=== PATIENT | male | born 1980 | race Caucasian/White ===

== ENCOUNTER → 2020-08-14 09:11 | Outpatient (CLI) | payer OTHER, SELFPAY ==
--- NOTE | ~2020-08-14 | US_ITS ---
US right upper quadrant DATE: 08/14/2020 09:28 INDICATION: Lack of bile in stool. Abdominal bloating. TECHNIQUE: Real time imaging of liver, pancreas, gallbladder COMPARISON: None FINDINGS: There are multiple filling defects of the gallbladder with acoustical shadowing, consistent with chol elithiasis. There is mild thickening of the gallbladder wall. This may be consistent with chronic or acute dawson cystitis. The common bile duct measures 7.1 mm; 6 mm is upper limits of normal. Common bile duct stone or obst ruction cannot be excluded. Consider MRCP. Negative sonographic Silva sign. No hepatic space occupying mass lesion. Normal portal vein flow direction. The pancreatic tail is obscured; the pancreas is otherwise unremarkable. IMPRESSION: Cholelithiasis Gallbladder wall thickening, likely due to chronic cholecystitis. (If there is concern for acute cho lecystitis, consider radionuclide hepatobiliary scan.) Common bile duct measures 7.1 mm. Common bile duct obstruction is not excluded; consider MRCP as cli nically appropriate Reviewed, dictated and finalized at [facility]. Reviewed, dictated and finalized at [facility]. [facility] IMPRESSION: Cholelithiasis Gallbladder wall thickening, likely due to chronic cholecystitis. (If there is concern for acute cholecystitis, consider radionuclide hepatobiliary scan.) Common bile duct measures 7.1 mm. Common bile duct obstruction is not excluded ; consider MRCP as clinically appropriate
== END ==
DX: R19.5 Other fecal abnormalities (principal); K80.20 Calculus of gallbladder without cholecystitis without obstruction
CPT/HCPCS: 76705

== ENCOUNTER 2025-03-06 09:29 | Outpatient (CLI) | payer OTHER, SELFPAY ==
--- NOTE | ~2025-03-06 | XR_ITS ---
CHEST RADIOGRAPH, PA AND LATERAL CLINICAL HISTORY: Ex tobacco use . COMPARISON: None available TECHNIQUE: PA and lateral views of the chest. FINDINGS The cardiomediastinal silhouette is unremarkable. The lungs are clear. IMPRESSION: No focal infiltrate or effusion. Reviewed, dictated and finalized at [facility].
== END 2025-03-06 09:30 | disposition home or self-care (01) ==
LOC: MICIMG 09:34
PROVIDERS: PCP Emergency Medicine; Visit Provider Emergency Medicine
DX: Z87.891 Personal history of nicotine dependence (principal)
CPT/HCPCS: 71046